=== PATIENT | female | born 1945 | race Caucasian/White ===

== ENCOUNTER 2024-09-11 17:55 | Emergency (ER) | payer OTHER, MEDICARE ==
[~2024-09-11] VITALS: Ht 154.9 cm; Wt 96.0 kg
[2024-09-11 18:41] LABS: HEMATOCRIT 45.3 % (36.0-47.0); HEMOGLOBIN 14.8 g/dl (12.0-15.5); MEAN CORPUSCULAR HEMOGLOBIN 30.4 pg (27.0-33.0); MEAN CORPUSCULAR HGB CONC 32.7 g/dl (32.0-36.5); PLATELET COUNT, AUTOMATED 166 10^3/uL (150-450); RED BLOOD COUNT 4.87 10^6/uL (4.00-5.40); WHITE BLOOD COUNT 12.2 10^3/uL (4.0-10.0)
[2024-09-11 18:53] LABS: CALCIUM LEVEL 9.9 MG/DL (8.3-10.6); CREATININE FOR GFR 0.74 MG/DL (0.55-1.30); GLOMERULAR FILTRATION RATE 82.8 (>39)
[2024-09-11 19:41] LABS: BASO % 0.2 % (0.0-1.0); LYMPH # 0.7 10^3/uL (1.5-5.0); LYMPH % 5.5 % (24.0-44.0); MONO # 0.5 10^3/uL (0.0-0.8); MONO % 3.8 % (2.0-8.0); NEUTROPHILS # 11.1 10^3/uL (1.5-8.5)
[2024-09-11 19:43] LABS: KETONE, URINE AUTO RFX TRACE mg/dL (NEGATIVE); LEUKOCYTE ESTERASE UR AUTO RFX NEGATIVE (NEGATIVE); NITRITE, URINE AUTO RFX NEGATIVE (NEGATIVE); RBC, URINE AUTO RFX 0 /HPF (0-3); SQUAM EPITHELIAL CELL UR AURFX 1 /HPF (0-6); WBC, URINE AUTO RFX 2 /HPF (0-3)
[2024-09-11 20:00] LABS: HEMOGLOBIN A1c 8.6 % (4.0-6.0)
[2024-09-11] MEDS ORDERED: ISOVUE-370 76% 100ML VIAL As Ordered ONE (20:13)
[2024-09-11] MEDS: ACETAMINOPHEN 325 MG TAB PO ONE (23:02)
[2024-09-12 01:45] VITALS: BP 107/53; TEMP 99.8; O2SAT 93
[2024-09-13] MEDS ORDERED: GLIM2TAB29 PO (01:07)
[2024-09-13] MEDS ORDERED: LEVO50TA5 PO (01:07)
[2024-09-13] MEDS ORDERED: LOSA100T5 PO (01:07)
[2024-09-13] MEDS ORDERED: XALA0.007 OU (01:07)
[2024-09-13] MEDS ORDERED: IBUP80TA PO (01:07)
[2024-09-13] MEDS ORDERED: DULA4.5P SC (01:07)
[2024-09-13] MEDS ORDERED: D3 H10002 PO (01:07)
[2024-09-13] MEDS ORDERED: JARD1TAB3 PO (01:07)
[2024-09-13] MEDS ORDERED: OMEP40CA5 PO (01:07)
[2024-09-13] MEDS ORDERED: SERT50TA29 PO (01:07)
[2024-09-13] MEDS ORDERED: ATOR1TAB21 PO (01:07)
[2024-09-13] MEDS ORDERED: METF500T13 PO (01:07)
[2024-09-13] MEDS ORDERED: OCUVTAB4 PO (01:08)
== END 2024-09-12 02:13 | disposition home or self-care (01) ==
LOC: M ED 17:55
DX: E11.69 Type 2 diabetes mellitus with other specified complication (principal); N28.1 Cyst of kidney, acquired; I10 Essential (primary) hypertension; E78.5 Hyperlipidemia, unspecified; K21.9 Gastro-esophageal reflux disease without esophagitis; F32.A Depression, unspecified; Z88.5 Allergy status to narcotic agent; Z79.4 Long term (current) use of insulin; Z79.84 Long term (current) use of oral hypoglycemic drugs; Z79.899 Other long term (current) drug therapy
CPT/HCPCS: 36415; 51701; 71045; 74177; 80048; 81001; 83036; 83605; 85027; 87040; 87077; 87154; 87186; 87486; 87581; 87633; 87798; 93041; 99285; Q9967

== ENCOUNTER 2024-09-12 20:49 | Inpatient (IN) | payer OTHER, MEDICARE ==
[~2024-09-12] VITALS: Ht 154.9 cm; Wt 92.7 kg
[2024-09-12 21:41] LABS: BASO % 0.3 % (0.0-1.0); EOS % 0.4 % (0.0-3.0); HEMATOCRIT 39.9 % (36.0-47.0); HEMOGLOBIN 13.1 g/dl (12.0-15.5); LYMPH % 14.4 % (24.0-44.0); MEAN CORPUSCULAR HEMOGLOBIN 30.1 pg (27.0-33.0); MEAN CORPUSCULAR HGB CONC 32.8 g/dl (32.0-36.5); MEAN CORPUSCULAR VOLUME 91.7 fl (80.0-96.0); MONO # 0.7 10^3/uL (0.0-0.8); MONO % 9.6 % (2.0-8.0); NEUTROPHILS # 5.2 10^3/uL (1.5-8.5); NEUTROPHILS % 74.7 % (36.0-66.0); PLATELET COUNT, AUTOMATED 152 10^3/uL (150-450); RED BLOOD COUNT 4.35 10^6/uL (4.00-5.40)
[2024-09-12 22:12] LABS: CREATININE FOR GFR 0.93 MG/DL (0.55-1.30); GLOMERULAR FILTRATION RATE 62.9 (>39); POTASSIUM SERUM 3.9 MMOL/L (3.5-5.1); PROCALCITONIN 0.46 ng/ml
[2024-09-12] MEDS: NS 500 ML IV ONE (22:29)
[2024-09-12] MEDS: PIPERACILLIN/TAZOBACTAM SOD 4.5 GM in DEXTROSE 5% (D5W) ADV/MINI-BAG 50 ML IV ONE (22:29)
[2024-09-12] MEDS ORDERED: MED REC IN PROGRESS XX SCH (23:00)
[2024-09-13] MEDS ORDERED: MOM 30ML SUSPENSION UDC PO PRN (00:15)
[2024-09-13] MEDS ORDERED: DEXTROSE 50% 50ML SYRINGE IV PRN (00:15)
[2024-09-13] MEDS ORDERED: GLUCAGON INJ 1MG VIAL SC PRN (00:15)
[2024-09-13] MEDS ORDERED: MAALOX 30 ML SUSP *UDC PO PRN (00:15)
[2024-09-13] MEDS ORDERED: GLUCOSE 4 GM CHEW PO PRN (00:15)
[2024-09-13] MEDS ORDERED: ACETAMINOPHEN 325 MG TAB PO PRN (00:15)
[2024-09-13] MEDS ORDERED: IBUP80TA PO (01:07)
[2024-09-13] MEDS ORDERED: XALA0.007 OU (01:07)
[2024-09-13] MEDS ORDERED: SERT50TA29 PO (01:07)
[2024-09-13] MEDS ORDERED: ATOR1TAB21 PO (01:07)
[2024-09-13] MEDS ORDERED: OMEP40CA5 PO ×2 (01:07)
[2024-09-13] MEDS ORDERED: METF500T13 PO (01:07)
[2024-09-13] MEDS ORDERED: D3 H10002 PO (01:07)
[2024-09-13] MEDS ORDERED: DULA4.5P SC (01:07)
[2024-09-13] MEDS ORDERED: LOSA100T5 PO (01:07)
[2024-09-13] MEDS ORDERED: LEVO50TA5 PO (01:07)
[2024-09-13] MEDS ORDERED: GLIM2TAB29 PO (01:07)
[2024-09-13] MEDS ORDERED: JARD1TAB3 PO (01:07)
[2024-09-13] MEDS ORDERED: OCUVTAB4 PO (01:08)
[2024-09-13] MEDS ORDERED: HOME MED LIST COMPLETE! XX SCH (01:10)
[2024-09-13] MEDS: PIPERACILLIN/TAZOBACTAM SOD 3.375 GM in DEXTROSE 5% (D5W) ADV/MINI-BAG 50 ML IV ONE (04:34)
[2024-09-13] MEDS: INSULIN LISPRO (NovoLOG) PER UNIT SC SCH ×2 (07:30→21:00)
[2024-09-13 10:00] VITALS: BP 100/98; TEMP 97.5; O2SAT 89
[2024-09-13] MEDS: DOCUSATE SODIUM 100MG CAPSULE PO SCH (10:22)
[2024-09-13] MEDS: ENOXAPARIN 40MG/0.4ML SYRINGE (J1650 PER 10MG) SC SCH (10:23)
[2024-09-13] MEDS ORDERED: ISOVUE-370 76% 100ML VIAL As Ordered ONE (10:26)
[2024-09-13] MEDS: PIPERACILLIN/TAZOBACTAM SOD 3.375 GM in DEXTROSE 5% (D5W) ADV/MINI-BAG 50 ML IV SCH (11:26)
[2024-09-13 12:00] VITALS: BP 126/57; TEMP 97.6; O2SAT 85
[2024-09-13 20:00] VITALS: BP 99/53; TEMP 97.5; O2SAT 95
[2024-09-14] MEDS: diphenhydrAMINE 25MG CAP PO ONE (00:04)
[2024-09-14 04:00] VITALS: BP 107/58; TEMP 97.5; O2SAT 96
[2024-09-14 07:39] LABS: BASO % 0.5 % (0.0-1.0); HEMATOCRIT 38.3 % (36.0-47.0); HEMOGLOBIN 12.8 g/dl (12.0-15.5); LYMPH # 0.9 10^3/uL (1.5-5.0); MEAN CORPUSCULAR HEMOGLOBIN 30.3 pg (27.0-33.0); MEAN CORPUSCULAR HGB CONC 33.4 g/dl (32.0-36.5); MEAN CORPUSCULAR VOLUME 90.8 fl (80.0-96.0); MONO # 0.6 10^3/uL (0.0-0.8); MONO % 14.5 % (2.0-8.0); NEUTROPHILS # 2.3 10^3/uL (1.5-8.5); NEUTROPHILS % 59.5 % (36.0-66.0); PLATELET COUNT, AUTOMATED 156 10^3/uL (150-450); RED BLOOD COUNT 4.22 10^6/uL (4.00-5.40); WHITE BLOOD COUNT 3.9 10^3/uL (4.0-10.0)
[2024-09-14 07:53] LABS: INR 0.92; PROTHROMBIN TIME 12.6 SECONDS (12.5-14.5)
[2024-09-14 08:24] LABS: BLOOD UREA NITROGEN 18 MG/DL (9-23); CALCIUM LEVEL 9.4 MG/DL (8.3-10.6); CARBON DIOXIDE LEVEL 25 MMOL/L (20-31); CHLORIDE LEVEL 104 MMOL/L (98-107); CREATININE FOR GFR 0.59 MG/DL (0.55-1.30); GLOMERULAR FILTRATION RATE > 90.0 (>39); GLUCOSE, FASTING 140 MG/DL (74-106); POTASSIUM SERUM 3.4 MMOL/L (3.5-5.1); SODIUM LEVEL 139 MMOL/L (136-145)
[2024-09-14] MEDS: POTASSIUM CHLORIDE 10MEQ SR TABLET PO ONE (12:06)
[2024-09-14] MEDS: LevoFLOXacin 750 MG TABLET PO SCH (16:17)
[2024-09-14 19:58] VITALS: BP 126/58; TEMP 97.5; O2SAT 96
[2024-09-14] MEDS: RAMELTEON 8 MG TAB (ROZEREM) PO PRN (23:44)
[2024-09-15 04:42] VITALS: BP 112/61; TEMP 97.5; O2SAT 95
[2024-09-15 05:56] LABS: BASO % 0.7 % (0.0-1.0); EOS # 0.1 10^3/uL (0.0-0.5); EOS % 1.7 % (0.0-3.0); HEMATOCRIT 38.5 % (36.0-47.0); HEMOGLOBIN 12.4 g/dl (12.0-15.5); LYMPH # 1.1 10^3/uL (1.5-5.0); LYMPH % 26.8 % (24.0-44.0); MEAN CORPUSCULAR HEMOGLOBIN 29.4 pg (27.0-33.0); MEAN CORPUSCULAR HGB CONC 32.2 g/dl (32.0-36.5); MEAN CORPUSCULAR VOLUME 91.2 fl (80.0-96.0); MONO # 0.6 10^3/uL (0.0-0.8); MONO % 13.3 % (2.0-8.0); NEUTROPHILS # 2.3 10^3/uL (1.5-8.5); NEUTROPHILS % 56.1 % (36.0-66.0); PLATELET COUNT, AUTOMATED 172 10^3/uL (150-450); RED BLOOD COUNT 4.22 10^6/uL (4.00-5.40); WHITE BLOOD COUNT 4.1 10^3/uL (4.0-10.0)
[2024-09-15 06:06] LABS: PROTHROMBIN TIME 13.5 SECONDS (12.5-14.5)
[2024-09-15 06:25] LABS: BLOOD UREA NITROGEN 17 MG/DL (9-23); CARBON DIOXIDE LEVEL 26 MMOL/L (20-31); CHLORIDE LEVEL 105 MMOL/L (98-107); CREATININE FOR GFR 0.54 MG/DL (0.55-1.30); GLOMERULAR FILTRATION RATE > 90.0 (>39); GLUCOSE, FASTING 177 MG/DL (74-106); POTASSIUM SERUM 3.8 MMOL/L (3.5-5.1); SODIUM LEVEL 138 MMOL/L (136-145)
[2024-09-15 06:36] LABS: PROCALCITONIN 0.14 ng/ml
[2024-09-15] MEDS ORDERED: LEVO75TAB PO (07:58)
[2024-09-15 09:38] VITALS: BP 108/74; TEMP 97; O2SAT 94
[2024-09-15 13:12] LABS: DEHYDROEPIANDROSTERONE SULFATE 111 mcg/dL (4-157)
== END 2024-09-15 10:00 | disposition home or self-care (01) | DRG 389 ==
LOC: M ED 20:49 → M ED INP 09-13 00:14 → M MS5PR 09-13 08:55
PROVIDERS: ADMIT Student in an Organized Health Care Education/Training Program; ATTEND Student in an Organized Health Care Education/Training Program
DX: K56.1 Intussusception (principal); R78.81 Bacteremia; E11.9 Type 2 diabetes mellitus without complications; I10 Essential (primary) hypertension; E78.5 Hyperlipidemia, unspecified; K21.9 Gastro-esophageal reflux disease without esophagitis; F03.90 Unspecified dementia, unspecified severity, without behavioral disturbance, psychotic disturbance, mood disturbance, and anxiety; N28.1 Cyst of kidney, acquired; B96.4 Proteus (mirabilis) (morganii) as the cause of diseases classified elsewhere; E66.9 Obesity, unspecified; Z79.899 Other long term (current) drug therapy; Z79.890 Hormone replacement therapy; Z88.5 Allergy status to narcotic agent